=== PATIENT | female | born 1970 | race Caucasian/White ===

== ENCOUNTER → 2017-05-18 | Outpatient (CLI) | payer OTHER ==
[2016-05-20 11:35] VITALS: BP 114/62
[~2017-05-18] MED LIST: ASPI1TAB2 PO; CETI10TA22 PO; ESOM40CA PO; ETHI1TAB12 PO; MULT1TAB6 PO; PROC10TA57 PO
--- NOTE | 2017-05-19 08:31 | RAD ---
PET oncologic study 05/18/2017 Technique: Blood glucose prior to injection: 109 mg/dL Scan region: Skull base to mid thigh Radiopharmaceutical: F-18 FDG 13.8 mCi IV Calibration time: Start 1225 hours and finished at 1350 hours Administration time: 1231 hours on 05/18/2017 Injection site: Left antecubital Postinjection imaging delay: Scan time 1327 hours on 05/18/2017 Clinical information: Restaging; follicular lymphoma Comparison: 10/20/2016 PET Attenuation correction was performed utilizing a noncontrast, nondiagnostic CT. Findings: Physiologic radiotracer uptake is identified in the oral cavity and visualized brain parenchyma. There are subcentimeter lymph nodes within the neck, none of which are pathologically enlarged or FDG avid. Heart size is normal. No pericardial or pleural effusions are identified. There is no FDG avid axillary, mediastinal or hilar lymph nodes. No suspicious pulmonary nodules are identified. Physiologic radiotracer uptake is identified within the liver with Max SUV 3.68. Stable appearance of a focal area of relative hyperattenuation in the right hepatic lobe most likely representing a hemangioma or focal fatty sparing (no associated FDG activity). There is diffuse hepatic steatosis. Physiologic radiotracer uptake is identified in the kidneys, ureters and urinary bladder. Physiologic uptake is identified within the bowel. No FDG avid, or pelvic lymph nodes are identified. Scattered nonenlarged mesenteric lymph nodes are stable without FDG activity. Impression: No evidence for FDG avid malignancy. No evidence for FDG avid recurrent or residual tumor.
== END | disposition home or self-care (01) ==
LOC: PETSC 11:50
PROVIDERS: ATTEND Radiology Radiation Oncology
DX: C82.93 Follicular lymphoma, unspecified, intra-abdominal lymph nodes (principal)
CPT/HCPCS: 78815; A9552

== ENCOUNTER → 2018-05-03 | Outpatient (CLI) | payer OTHER | END | disposition home or self-care (01) | LOC: PETSC 07:37 | DX: C85.86 Other specified types of non-Hodgkin lymphoma, intrapelvic lymph nodes (principal); Z85.72 Personal history of non-Hodgkin lymphomas | CPT/HCPCS: 78815; A9552 ==

== ENCOUNTER → 2021-06-08 | Outpatient (CLI) | payer OTHER ==
[~2021-06-08] MED LIST changes: +ASPI-621 PO; -ASPI1TAB2 PO; -CETI10TA22 PO; +CETI10TA74 PO; +COLE1TAB2 PO; +IOHEXOL 240 MG/ML 50ML VIAL. PO ONE; +IOHEXOL 300 MG/ML 100ML VIAL. IV ONE; +LOPE-101 PO; +OMEP20TA8 PO
--- NOTE | 2021-06-09 12:26 | KCIC ---
EXAM: Abdomen and pelvis CT with intravenous contrast. HISTORY: Follicular lymphoma. TECHNIQUE: Computed tomographic images of the abdomen and pelvis were obtained following the administ ration of intravenous contrast. Multiplanar reformatting was performed. *One or more of the following individualized dose reduction techniques were utilized for this examina tion: 1. Automated exposure control. 2. Adjustment of the mA and/or kV according to patient size. 3. Use of iterative reconstruction technique. COMPARISON: CT dated 05/03/2018. FINDINGS: Evaluation of the lower thorax demonstrates no infiltrate or pleural effusion. There is no suspicious pulmonary nodule. There is hepatomegaly and hepatic steatosis. There are hypodense lesions within the right hepatic lobe measuring 2.6 cm, 0.9 cm and 0.3 cm. There is a similar-appearing hype rdense lesion within the left hepatic lobe measuring 1.8 cm. There is a faint round region of slight hyperdensity within the posterior right hepatic lobe measuring 3.9 cm. The gallbladder is absent. The pancreas is unremarkable. There is a splenule adjacent to an otherwise unremarkable spleen. The adre nal glands and kidneys are unremarkable. There is no appendicitis. There is no bowel obstruction. There is slight stranding throughout the angel t of the mesentery and there are few prominent mesenteric lymph nodes measuring up to 1.3 cm in long axis. There are metallic clips within the mesentery in the left midabdomen. The aorta is normal in ca liber. No retroperitoneal lymphadenopathy is seen. The bladder, uterus and adnexal regions are unrema rkable. No suspicious inguinal lymph node is seen. There is no acute or suspicious osseous lesion. IMPRESSION: 1. Hyperdense lesions within the liver measuring up to 3.9 cm, described above. These are superimpose d on hepatomegaly and hepatic steatosis. These are increased in size and number compared to the prior study. Liver MRI can better characterize these lesions. 2. Slight stranding within the root of mesentery and prominent mesenteric lymph nodes. This is not si gnificantly changed compared to the prior study, allowing for differences in technique. Note is made that PET/CT may be useful to assess for recurrent or residual lymphoma clinically indicated. 3. No acute abdominal or pelvic finding. Electronically signed by: Marlene Herny MD (06/09/2021 12:24 PM) [id number]
== END ==
LOC: KCIC CT 09:04 → MERGE 09:04
PROVIDERS: ATTEND Internal Medicine Hematology & Oncology
DX: C82.00 Follicular lymphoma grade I, unspecified site (principal); K76.0 Fatty (change of) liver, not elsewhere classified; K76.9 Liver disease, unspecified; R59.0 Localized enlarged lymph nodes
CPT/HCPCS: 74177; Q9966; Q9967

== ENCOUNTER → 2021-08-09 | Outpatient (CLI) | payer OTHER ==
[2016-05-20 11:35] VITALS: BP 114/62
[~2021-08-09] MED LIST changes: +ASPI1TAB31 PO; +DIPH50CA PO; +ESOM20CA PO; -IOHEXOL 240 MG/ML 50ML VIAL. PO ONE; -IOHEXOL 300 MG/ML 100ML VIAL. IV ONE
--- NOTE | 2021-08-09 08:29 | RAD ---
EXAMINATION: US ABDOMEN COMPLETE INDICATION: 50 years, Female, liver masses. Follow-up examination. COMPARISON: CT dated 06/08/2021 and multiple priors TECHNIQUE: Grayscale, color Doppler and limited spectral Doppler images of the abdomen were obtained. FINDINGS: LIVER: SIZE (LENGTH): 21 cm. ECHOGENICITY: Increased. PARENCHYMA: Mild heterogeneous echotexture. There is hypoechoic lesion in hepatic segment 2, likely i ncreasing size since prior exam with allowing differences in modality, now measures approximately 2.4 x 2.5 x 1.6 cm, previously measures 2.0 x 1.3 x 1.4 cm. Additional, there is a 2.5 x 2.7 x 2.2 cm hy poechoic avascular lesion in the posterior right hepatic lobe, slightly increasing in size since prio r exam, now measures 2.5 x 2.7 x 2.2 cm, previously 2.2 x 2.2 x 2.4 cm. INTRAHEPATIC BILE DUCTS: Nondilated. PORTAL VEIN: Patent with normal hepatopedal flow. GALLBLADDER: Cholecystectomy. COMMON BILE DUCT DIAMETER: 6 mm. RIGHT KIDNEY: MEASURES: 612.2 cm in length. MORPHOLOGY/PARENCHYMA: Normal corticomedullary differentiation with no shadowing calculus or discrete masses. COLLECTING SYSTEM: No hydronephrosis. LEFT KIDNEY: MEASURES: 11.7 cm in length MORPHOLOGY/PARENCHYMA: Normal corticomedullary differentiation with no shadowing calculus or discrete masses. COLLECTING SYSTEM: No hydronephrosis. SPLEEN: SIZE (LENGTH): 11.6 cm PARENCHYMA: Unremarkable. PANCREAS: VISUALIZED PORTIONS: Entire. APPEARANCE: Within normal limits. OTHER: RETROPERITONEUM, INFERIOR VENA CAVA: Normal caliber. AORTA: Normal caliber measures up to 2.3 cm FLUID:No free fluid. IMPRESSION: 1. Hepatomegaly with severe diffuse steatosis. 2. Bilobar avascular hepatic lesions, slightly increasing in size since prior exam with allowing diff erences in modality. Findings indeterminate, differential includes but not limited to focal nodular h yperplasia or hepatic adenomas. Recommend further evaluation with MRI liver using hepatobiliary contr ast (Eovist), given interval development of these lesions since 2016 and increasing in size of the le ft hepatic lobe lesion since 2018 PET/CT scan. 3. The previously seen superior right hepatic lobe hemangioma is not appreciated on the current exam. Electronically signed by: Brenda Bradley MD (08/09/2021 8:26 AM) [facility]
== END ==
LOC: US 06:27
PROVIDERS: ATTEND Internal Medicine Hematology & Oncology
DX: K76.0 Fatty (change of) liver, not elsewhere classified (principal); K76.9 Liver disease, unspecified; Z90.49 Acquired absence of other specified parts of digestive tract
CPT/HCPCS: 76700

== ENCOUNTER 2021-08-17 06:46 | Outpatient (CLI) | payer OTHER ==
[2021-08-17] VITALS (10 sets, daily range): BP systolic 131–149; BP diastolic 61–78
[~2021-08-17] VITALS: Ht 172.7 cm; Wt 88.6 kg
[~2021-08-17 06:46] MED LIST changes: -ASPI1TAB31 PO; -DIPH50CA PO; -ESOM20CA PO
[2021-08-17] MEDS ORDERED: ASPI1TAB31 PO (07:18)
[2021-08-17] MEDS ORDERED: ESOM20CA PO (07:18)
[2021-08-17] MEDS ORDERED: DIPH50CA PO (07:18)
[2021-08-17 07:41] LABS: BASO # 0.1 x10^3/uL (0.0-0.2); BASO % 1 % (0-3); EOS # 0.3 x10^3/uL (0.0-0.7); EOS % 4 % (0-3); HEMATOCRIT 37.9 % (36.0-47.0); HEMOGLOBIN 12.8 g/dL (12.0-15.5); LYMPH # 1.4 x10^3/uL (1.0-4.8); LYMPH % 22 % (24-48); MEAN CORPUSCULAR HEMOGLOBIN 28 pg (25-35); MEAN CORPUSCULAR HGB CONC 34 g/dL (31-37); MEAN CORPUSCULAR VOLUME 84 fL (79-100); MONO # 0.4 x10^3/uL (0.0-1.1); MONO % 7 % (0-9); NEUT # 4.2 x10^3/uL (1.8-7.7); NEUT % 66 % (31-73); PLATELET COUNT 207 x10^3/uL (140-400); RED BLOOD COUNT 4.51 x10^6/uL (3.50-5.40); RED CELL DISTRIBUTION WIDTH 13.9 % (11.5-14.5); WHITE BLOOD COUNT 6.4 x10^3/uL (4.0-11.0)
[2021-08-17 07:53] LABS: CALCIUM 8.4 mg/dL (8.5-10.1); CREATININE 0.9 mg/dL (0.6-1.0); GFR 66.5
[2021-08-17] MEDS ORDERED: fentaNYL PF VIAL 100 MCG/2 ML VIAL ONE (08:25)
[2021-08-17] MEDS ORDERED: MIDAZOLAM HCL/PF 2 MG/2 ML VIAL. ONE (08:25)
[2021-08-17] MEDS ORDERED: LIDOCAINE WITH 8.4% SOD BICARB 3 ML DISP.SYRIN. ONE (08:26)
[2021-08-17 09:25] LABS: PROTHROMBIN TIME PATIENT 12.4 SEC (11.7-14.0)
[2021-08-17] MEDS ORDERED: fentaNYL PF VIAL 100 MCG/2 ML VIAL IV ONE (09:30)
[2021-08-17] MEDS ORDERED: MIDAZOLAM HCL/PF 2 MG/2 ML VIAL. IV ONE (09:30)
[2021-08-17] MEDS ORDERED: LIDOCAINE WITH 8.4% SOD BICARB 3 ML DISP.SYRIN. IJ ONE (09:30)
--- NOTE | 2021-08-17 10:30 | NUR ---
pt only got fentanyl for pain Addendum: 08/17/21 at 1031 by JOSE ANTONIO BRADLEY RN Amended: Links added.
--- NOTE | 2021-08-17 10:30 | NUR ---
VS stable. Site clean, dry, small amount of bruising. Order received to d/c patient. PIV removed. Instructions provided on procedure, sedation. Patient verbalized understanding. All belongings taken w/ patient. Patient's son driving home.
--- NOTE | 2021-08-17 10:45 | NUR ---
Patient taken to private vehicle via wheelchair w/ all belongings. Son driving home. Site clean, no increased bruising.
--- NOTE | 2021-08-17 15:09 | RAD ---
Ultrasound-guided liver biopsy 08/17/2021 CLINICAL HISTORY: FOLICULAR LYMPHOMA, liver lesions Anesthesia: Local with moderate sedation. Continuous cardiopulmonary monitoring was preformed by inde pendent qualified nursing personnel. Please refer to the medical record for exact doses of medications utilized to achieve moderate sedati on. Conscious sedation was administered for 22 minutes. Complications: None Consent: The procedure was explained in its entirety to the patient or the patients designated repre sentative by a member of the treatment team, including a discussion of the risks, benefits and common ly accepted alternatives to the procedure, as well as the expected consequences of no therapy whatsoe marisol. Discussion of the risks included, but was not limited to, those that are most frequent and those that are rare but possibly severe or life-threatening, as well as the possibility of unforeseen comp lications. All questions were answered and informed consent was obtained. Sterility: All elements of maximal sterile barrier technique including the use of a cap, mask, steril e gloves, sterile drape, appropriate hand hygiene, and 2% chlorhexidine for cutaneous antisepsis (or acceptable alternative antiseptic per current guidelines) were followed for this procedure. Patient was placed in the supine position. The right upper quadrant 1 prepped and draped in appropria te sterile fashion. A timeout was performed. Limited ultrasound scanning of the liver was performed and the hypoechoic lesions were localized. Local lidocaine was given. The 17 gauce jessika tip introd ucer needle was entered into the hypoechoic lesion in the posterior right hepatic lobe. 4 18-gauge co re needle biopsies were obtained. The blunt stylette was placed through the introducer needle and the needle was removed. Pressure was held to achieve hemostasis and a sterile dressing was placed. Limit ed scanning throughout the area did not demonstrate any immediate complications. Impression: Ultrasound guided biopsy of the hypoechoic lesion in the right posterior lobe. Electronically signed by: Darwin Pro (08/17/2021 3:07 PM) [id number]
--- NOTE | 2021-08-26 14:12 | PATHOLOGY ---
[facility] Accession Number: [id number] . 01 Material submitted: . liver - LIVER BIOPSY . 01 Clinical history: . FOLLICULAR LYMPHOMA RPMI TO epacube VIA [employer] . 50-year-old female with a history of low-grade follicular lymphoma who also has multiple bilobar hepatic, arterial enhancing lesions identified on imaging studies. . 02 Diagnosis: Liver "needle biopsy mass posterior right lobe": - Benign hepatocellular lesion - consistent with focal nodular hyperplasia. - Negative for a lymphoproliferative process. - Please see comment. (MLK:elizabeth; 08/26/2021) [facility] 08/26/2021 1350 Local . 02 Comment: Evaluation of the biopsy of the right posterior liver mass shows a benign hepatocellular process. Based on the fibronodular pattern and the immunohistochemical profile, the features are consistent with focal nodular hyperplasia. . There is no histologic or flow cytometric evidence of a lymphoproliferative process. . (CASSIK:elizabeth; 08/26/2021) . 02 Electronically signed: . Otf Jackman MD, Pathologist NPI- [id number] . 01 Gross description: . The specimen is received in formalin, labeled "Sue Pro, liver BX". Received are 2 needle cores of pale yellow tissue ranging in length from 1.2 to 1.7 cm by 0.1 cm in diameter. The specimen is submitted entirely in A1-A2. ([facility]; 08/17/2021) NRI/NRI 08/17/2021 1634 Local . 02 Microscopic: . Several needle cores of liver tissue are available for review. The largest needle core at one edge demonstrates a subtle nodular appearance, with thin fibrous septae surrounding nodular hepatocellular areas. Small vessels and bile ductular structures are seen in the fibrous bands. The reticulin stain overall shows an intact hepatic reticulin framework. Hepatic plates throughout the biopsy are either thickened (up to 2 cells in thickness) or atrophic. The hyperplastic areas create subtle nodules and these are surrounded by the thin atrophic plates. The CD34 shows increased reactivity within the sinusoids in a somewhat patchy distribution. The glutamine synthetase shows a "map like" pattern of staining, with reactivity seen in the lesional hepatocytes and negative staining around the fibrous sepatae, compatible with focal nodular hyperplasia. . Immunohistochemical Stains (Properly Controlled) Blocks (A1,A2) . Glutamine Synthetase - map like pattern of staining CD34 - patchy sinudoidal staining B catenin - negative for nuclear staining Glypican 3 - negative . Histochemical Stains (Properly Controlled) Blocks (A1, A2) . Trichrome - highlights fibrous sepatae Reticulin - shows intact reticulin framework with areas of hyperplastic plates and atrophic plates Iron - negative PAS - highlights intracytoplasmic glycogen PASD - negative for intracytoplasmic hepatocellular inclusions . (MLK:pit; 08/26/2021) . 02 Pathologist provided ICD-10: K76.9, C82.90 . 02 CPT . 038618, [id number], [id number], [id number], [id number], [id number], [id number], [id number], [id number], [id number], 131847, 880395, [id number] Specimen Comment: A courtesy copy of this report has been sent to [phone] Specimen Comment: Report sent to Performed at: 01 [facility] [address] [facility] [address], [place] [id number] MD Osmel Huber MD Phone: [phone] Performed at: 02 [facility] [id number] [address] [id number] MD Alberto Kramer MD Phone: [phone]
== END 2021-08-17 10:45 | disposition home or self-care (01) ==
LOC: INTRAD 06:46
PROVIDERS: ATTEND Internal Medicine Hematology & Oncology
DX: C82.00 Follicular lymphoma grade I, unspecified site (principal); K76.89 Other specified diseases of liver; Z79.82 Long term (current) use of aspirin; Z79.899 Other long term (current) drug therapy; Z90.49 Acquired absence of other specified parts of digestive tract; Z98.890 Other specified postprocedural states; Z91.041 Radiographic dye allergy status
CPT/HCPCS: 36415; 47000; 76705; 80048; 85025; 85610; 88184; 88185; 99152; J2250; J3010; J3490